=== PATIENT | male | born 1990 | race Caucasian/White ===

== ENCOUNTER 2016-06-08 19:44 | Emergency (ER) | payer OTHER ==
[2016-06-08] MEDS ORDERED: ONDANSETRON ODT 4 MG TABLET TL STA (20:27)
[2016-06-08] MEDS ORDERED: HYDROmorphone 1 MG/ML SYRINGE IM STA ×2 (20:27→21:51)
[2016-06-08] MEDS ORDERED: DEXAMETHASONE 10 MG/ML VIAL IM STA (20:27)
[2016-06-08] MEDS ORDERED: ONDANSETRON ODT 4 MG TABLET ONE (21:23)
[2016-06-08] MEDS ORDERED: DEXAMETHASONE 10 MG/ML VIAL ONE (21:23)
[2016-06-08] MEDS ORDERED: HYDROmorphone 1 MG/ML SYRINGE ONE ×2 (21:23→22:09)
[2016-06-09] MEDS ORDERED: HYDROmorphone 1 MG/ML SYRINGE IVP STA (00:35)
[2016-06-09] MEDS ORDERED: PROMETHAZINE INJ 25 MG in SODIUM CHLORIDE 0.9% 50 ML IV STA (00:35)
[2016-06-09] MEDS ORDERED: PROMETHAZINE 25 MG/1 ML VIAL ONE (01:07)
[2016-06-09] MEDS ORDERED: HYDROmorphone 1 MG/ML SYRINGE ONE (01:07)
== END 2016-06-09 01:32 | disposition short-term general hospital (02) ==
DX: M54.31 Sciatica, right side (principal); G89.29 Other chronic pain
CPT/HCPCS: 51798; 81003; 96372; 96374; 96375; 99283; 99284; J1170

== ENCOUNTER 2016-06-09 01:30 | Outpatient (CLI) | payer OTHER | END 2016-06-09 01:31 | disposition short-term general hospital (02) | DX: G83.4 Cauda equina syndrome (principal) | CPT/HCPCS: A0425; A0426 ==